=== PATIENT | female | born 1955 | race African-American/Black ===

== ENCOUNTER 2022-11-25 16:30 | Inpatient (IN) | payer OTHER ==
[2022-11-25 17:35] LABS: Hematocrit 34.7 % (36.0-45.0); Lymphocytes % 26.8 % (15.3-44.8); MCV 85.9 fL (80-100); MPV 8.2 fL (7.6-11.3); RBC Red Blood Cell Count 4.04 M/uL (3.86-4.86)
[2022-11-25 17:40] LABS: Protime INR 1.01
[2022-11-25 17:46] LABS: Urine Bacteria None Seen /HPF (<20); Urine Bilirubin NEGATIVE (Negative); Urine Blood Negative (Negative); Urine Clarity Clear (Clear); Urine Color Light-Yellow (Yellow); Urine Glucose NEGATIVE (Negative); Urine Mucus Slight /HPF (None Seen); Urine Protein NEGATIVE (Negative); Urine RBC <5 /HPF (None Seen); Urine Urobilinogen Normal (Normal)
[2022-11-25 17:51] LABS: Albumin 3.8 g/dL (3.4-5.0); Bilirubin Total 0.6 mg/dL (0.2-1.0); Potassium 3.2 mEq/L (3.5-5.1); Protein, Total 8.6 g/dL (6.4-8.2)
--- NOTE | 2022-11-25 17:55 | RAD REPORT ---
EXAM DESCRIPTION: Teagan Single View11/25/2022 5:13 pm CLINICAL HISTORY: Hypertension/ facial swelling COMPARISON: 2015 FINDINGS: The lungs appear clear of acute infiltrate. The heart is normal size IMPRESSION: No acute abnormalities displayed
[2022-11-25] MEDS ORDERED: LORazepam 2 MG/ML VIAL ONE (20:10)
--- NOTE | 2022-11-25 20:56 | RAD REPORT ---
EXAM DESCRIPTION: CTFacial Bones W Con Mpr11/25/2022 8:49 pm CLINICAL HISTORY: Right facial pain and swelling COMPARISON: None. TECHNIQUE: Computed axial tomography of the face obtained with coronal and sagittal reconstruction. 50 cc Isovue-[address] scans are performed using dose optimization technique as appropriate and may include automated exposure control or mA/KV adjustment according to patient size. FINDINGS: 18 millimeter abscess is present within the subcutaneous tissues superficial to the right mandible. It is palpable. The parotid and submandibular glands appear unremarkable. Visualized airway unremarkable The parapharyngeal fat is clear. Fluid within the sinuses is not noted. IMPRESSION: 18 millimeter right cheek abscess .
--- NOTE | 2022-11-25 22:23 | EDPHYS ---
Physician Documentation [facility] Name: Glenda Smith Age: 67 yrs Sex: Female : 1955 Arrival Date: 11/25/2022 Time: 16:30 Bed 13 Private MD: ED Physician Cresencio Rosario HPI: 11/25 17:02 This 67 yrs old Black Female presents to ER via Ambulatory with complaints of Abscess. cp 17:02 the patient presents with a swollen area of the right facial cheek. Description: cp fluctuant, swollen, warm. Onset: The symptoms/episode began/occurred 4 day(s) ago. Associated signs and symptoms: Pertinent negatives: discharge, drainage, fever. 17:02 Severity of symptoms: in the emergency department the symptoms are actually worse, cp moderately. 17:02 Patient reports she was seen at Urgent Care this past weekend and prescribed cp Doxycycline but swelling has continued to get worse. Historical: - Allergies: 16:56 No Known Allergies; ss - Home Meds: 23:38 glipizide 5 mg Oral tab 1 tab once daily [Active]; metformin 1,000 mg Oral tab 1 tab 2 rv times per day [Active]; - PMHx: 16:56 Diabetes - NIDDM; Hypertension; Hypothyroidism; ss - Immunization history:: Client reports receiving the 2nd dose of the Covid vaccine. - Social history:: Smoking status: Patient denies any tobacco usage or history of. ROS: 17:05 Skin: Positive for swelling, of the right cheek. cp 17:05 Constitutional: Negative for body aches, chills, fever. cp 17:05 ENT: Negative for drainage from ear(s), ear pain, sore throat, difficulty swallowing, difficulty handling secretions. 17:05 Respiratory: Negative for cough, shortness of breath, wheezing. 17:05 Abdomen/GI: Negative for abdominal pain, nausea, vomiting, and diarrhea. 17:05 Neuro: Negative for altered mental status, dizziness, headache, weakness. 17:05 All other systems are negative. Exam: 17:10 Constitutional: The patient appears in no acute distress, alert, awake, cp non-diaphoretic, non-toxic, well developed, well nourished, obese, uncomfortable. 17:10 Head/face: Noted is swelling, that is moderate, of the right cheek, tenderness, that cp is moderate, of the right cheek. 17:10 Eyes: Periorbital structures: appear normal, Conjunctiva: normal, no exudate, no injection, Sclera: no appreciated abnormality, Lids and lashes: appear normal, bilaterally. 17:10 ENT: External ear(s): are unremarkable, Nose: is normal, Mouth: Lips: moist, Oral mucosa: pink and intact, moist, Posterior pharynx: is normal, airway is patent, no erythema, no exudate. 17:10 Neck: ROM/movement: is normal, is supple, without pain, no range of motions limitations. 17:10 Chest/axilla: Inspection: normal. 17:10 Cardiovascular: Rate: normal, Rhythm: regular. 17:10 Respiratory: the patient does not display signs of respiratory distress, Respirations: normal, no use of accessory muscles, no retractions, labored breathing, is not present, Breath sounds: are clear throughout, no decreased breath sounds, no stridor, no wheezing. 17:10 Abdomen/GI: Exam negative for discomfort, distension, guarding, Inspection: abdomen appears normal. 17:10 Neuro: Orientation: to person, place \T\ time. Mentation: is normal, Motor: moves all fours, strength is normal. Vital Signs: 16:51 BP 168 / 73; Pulse 97; Resp 18; Temp 99.5; Pulse Ox 100% ; Weight 120.66 kg; Height 5 ss ft. 3 in. ; Pain 8/10; 22:03 BP 129 / 59; Pulse 89; Resp 18; Pulse Ox 100% on R/A; rv 23:39 BP 123 / 63; Pulse 78; Resp 17; Temp 98; Pulse Ox 100% on R/A; rv 16:51 Body Mass Index 47.12 (120.66 kg, 160.02 cm) ss 16:51 Pain Scale: Adult ss [place] Coma Score: 23:40 Eye Response: spontaneous(4). Motor Response: obeys commands(6). Verbal Response: rv oriented(5). Total: 15. MDM: 16:58 Patient medically screened. cp 18:00 Differential diagnosis: abscess, allergic reaction, cellulitis, insect bite. cp 21:49 ED course: message left by washing tub operator for DR Gregory. cp 22:15 Data reviewed: vital signs, nurses notes, lab test result(s), EKG, radiologic studies, cp CT scan. 22:15 Consideration of Admission/Observation Patient was admitted/placed on observation. cp Management of patient was discussed with the following: Imaging Nurse: DR Gregory will consult after discussion. Care significantly affected by the following chronic conditions: Diabetes, Hypertension. Counseling: I had a detailed discussion with the patient and/or guardian regarding: the historical points, exam findings, and any diagnostic results supporting the discharge/admit diagnosis, lab results, radiology results, the need for further work-up and treatment in the hospital. 22:20 Management of patient was discussed with the following: Hospitalist: Jalyn Barillas NP cp will admit after discussion. 11/25 17:01 Order name: Blood Culture Adult (2) 11/25 17:01 Order name: CBC with Diff; Complete Time: 17:43 11/25 17:43 Interpretation: Normal except: WBC 11.10; HGB 11.1; HCT 34.7. 11/25 17:01 Order name: CMP; Complete Time: 18:01 11/25 18:01 Interpretation: Normal except: K 3.2; GFR 75; TP 8.6; GLOB 4.8; A/G 0.8. 11/25 17:01 Order name: Lactate w/ 2H reflex if indic.; Complete Time: 18:01 11/25 17:01 Order name: Protime (+inr); Complete Time: 17:43 11/25 17:01 Order name: Ptt, Activated; Complete Time: 17:43 11/25 17:01 Order name: Urinalysis W/Microscopic; Complete Time: 18:01 11/25 17:01 Order name: Chest Single View XRAY; Complete Time: 18:01 11/25 17:01 Order name: CT Facial Bones W/ Con \T\ Mpr; Complete Time: 21:05 11/25 17:01 Order name: EKG; Complete Time: 17:01 11/25 17:01 Order name: Accucheck; Complete Time: 18:07 11/25 17:01 Order name: Cardiac monitoring; Complete Time: 17:02 11/25 17:01 Order name: EKG - Nurse/Tech; Complete Time: 18:07 11/25 17:01 Order name: IV Saline Lock - Large Bore; Complete Time: 17:28 cp 11/25 17:01 Order name: Labs collected and sent; Complete Time: 17:28 cp 11/25 17:01 Order name: O2 Per Protocol; Complete Time: 17:02 cp 11/25 17:01 Order name: O2 Sat Monitoring; Complete Time: 17:02 cp 11/25 17:01 Order name: Vital Signs; Complete Time: 17:02 cp Administered Medications: 20:20 Drug: Ativan IVP 1 mg Route: IVP; Site: left antecubital; rv 22:24 Follow up: Response: No adverse reaction rv 22:24 Drug: Clindamycin IVPB 900 mg Route: IVPB; Infused Over: 30 mins; Site: left rv antecubital; 23:30 Follow up: Response: No adverse reaction; IV Status: Completed infusion rv 22:24 Drug: Decadron - Dexamethasone IVP 10 mg Route: IVP; Site: left antecubital; rv 23:30 Follow up: Response: No adverse reaction rv 23:38 Not Given (NOT APPROPRIATE AT THIS TIMEe): morphine IVP or IV 2 mg IVP once over 4 mins rv 23:38 Not Given (Patient Refused): morphine IVP or IV 2 mg IVP once over 4 mins rv Disposition Summary: 11/25/22 22:22 Hospitalization Ordered Hospitalization Status: Inpatient Admission cp Location: Telemetry/[facility] (Inpatient) cp Condition: Stable cp Problem: new cp Symptoms: have improved cp Bed/Room Type: Standard cp Provider: Jay Whitehead(11/25/22 22:24) sb4 Room Assignment: [facility](11/25/22 23:09) Diagnosis - Cutaneous abscess of face cp - Failed Outpatient Treatment cp Forms: - Medication Reconciliation Form cp - SBAR form cp Addendum: 11/28/2022 10:04 Co-signature as Attending Physician, Cresencio Rosario MD I reviewed the patient's care r n provided by the Advanced Practice Provider and agree with the diagnosis and treatment plan. Signatures: Dispatcher [employer] Cresencio Michelle MD MD rn Blanchard, Shelby, RN RN ss Page, Corey, PA PA cp Garcia, Cindy, RN RN cg Vicente, Ronaldo, RN RN rv Cassie Barillas PA-C PA-C sb4 Corrections: (The following items were deleted from the chart) 11/25 22:22 Cassie Barillas cp sb4 22: cp
--- NOTE | 2022-11-25 22:23 | ER ---
Nurse's Notes [facility] Name: Glenda Smith Age: 67 yrs Sex: Female : 1955 Arrival Date: 11/25/2022 Time: 16:30 Bed 13 Private MD: Diagnosis: Cutaneous abscess of face;Failed Outpatient Treatment Presentation: 11/25 16:51 Chief complaint: Patient states: Abscess to right side of face, noticed it about 3 days ss ago. States it drained some, but has gotten bigger and more painful. Coronavirus screen: Vaccine status: Patient reports receiving the 2nd dose of the covid vaccine. Ebola Screen: Patient denies travel to an Ebola-affected area in the 21 days before illness onset. Initial Sepsis Screen: Does the patient meet any 2 criteria? No. Patient's initial sepsis screen is negative. Does the patient have a suspected source of infection? Yes: Skin breakdown/wound. Risk Assessment: Do you want to hurt yourself or someone else? Patient reports no desire to harm self or others. Onset of symptoms was November 22, 2022. 16:51 Method Of Arrival: Ambulatory ss 16:51 Acuity: PEPE 3 ss Historical: - Allergies: 16:56 No Known Allergies; ss - Home Meds: 23:38 glipizide 5 mg Oral tab 1 tab once daily [Active]; metformin 1,000 mg Oral tab 1 tab 2 rv times per day [Active]; - PMHx: 16:56 Diabetes - NIDDM; Hypertension; Hypothyroidism; ss - Immunization history:: Client reports receiving the 2nd dose of the Covid vaccine. - Social history:: Smoking status: Patient denies any tobacco usage or history of. Screenin:40 [facility] ED Fall Risk Assessment (Adult) History of falling in the last 3 months, ko1 including since admission No falls in past 3 months (0 pts) Confusion or Disorientation No (0 pts) Intoxicated or Sedated No (0 pts) Impaired Gait No (0 pts) Mobility Assist Device Used No (0 pt) Altered Elimination No (0 pt) Score/Fall Risk Level 0 - 2 = Low Risk Oriented to surroundings, Maintained a safe environment, Educated pt \T\ family on fall prevention, incl call for assistance when getting out of bed, Assessed \T\ reinforced patient's understanding of fall precautions, Provided non-skid footwear, Hourly rounding (assess needs \T\ fall precautionary measures) done, Used ambulatory aids as needed (educated on \T\ assisted with), Used gait belt as appropriate. Abuse screen: Denies threats or abuse. Denies injuries from another. Nutritional screening: No deficits noted. Tuberculosis screening: No symptoms or risk factors identified. Assessment: 16:40 General: Appears in no apparent distress. comfortable, Behavior is calm, cooperative, ko1 appropriate for age. Pain: Complains of pain in right cheek. Neuro: No deficits noted. Cardiovascular: No deficits noted. Respiratory: No deficits noted. GI: No deficits noted. : No deficits noted. EENT: No deficits noted. Derm: No deficits noted. Musculoskeletal: No deficits noted. Vital Signs: 16:51 BP 168 / 73; Pulse 97; Resp 18; Temp 99.5; Pulse Ox 100% ; Weight 120.66 kg; Height 5 ss ft. 3 in. ; Pain 8/10; 22:03 BP 129 / 59; Pulse 89; Resp 18; Pulse Ox 100% on R/A; rv 23:39 BP 123 / 63; Pulse 78; Resp 17; Temp 98; Pulse Ox 100% on R/A; rv 16:51 Body Mass Index 47.12 (120.66 kg, 160.02 cm) ss 16:51 Pain Scale: Adult ss [place] Coma Score: 23:40 Eye Response: spontaneous(4). Motor Response: obeys commands(6). Verbal Response: rv oriented(5). Total: 15. ED Course: 16:34 Patient arrived in ED. mr 16:36 Douglas Howell PA is PHCP. cp 16:36 Cresencio Rosario MD is Attending Physician. cp 16:40 Patient has correct armband on for positive identification. Bed in low position. Call ko1 light in reach. Side rails up X2. Pulse ox on. NIBP on. Door closed. Noise minimized. Warm blanket given. 16:56 Triage completed. ss 16:57 Arm band placed on right wrist. ss 17:02 Anabella Felder, ELAINE is Primary Nurse. ko1 17:10 Radiology exam delayed due to lab results not completed at this time. (BUN/Creatinine) bq IV insertion attempt and/or patient not having appropriate IV at this time. 17:15 Chest Single View XRAY In Process Unspecified. EDMS 17:20 Inserted saline lock: 22 gauge in right antecubital area, using aseptic technique. ko1 Blood collected. 17:28 Blood Culture Adult (2) Sent. ko1 17:28 CBC with Diff Sent. ko1 17:28 CMP Sent. ko1 17:28 Lactate w/ 2H reflex if indic. Sent. ko1 17:29 Protime (+inr) Sent. ko1 17:29 Ptt, Activated Sent. ko1 17:37 Urinalysis W/Microscopic Sent. ko1 18:42 Note: CT exam delayed due to patient requesting Ativan in order to complete the exam.. [id number] 20:51 CT Facial Bones W/ Con \T\ Mpr In Process Unspecified. EDMS 22:21 Cassie Barillas PA-C is Hospitalizing Provider. cp 22:24 Jay Whitehead MD is Hospitalizing Provider. sb4 23:30 No provider procedures requiring assistance completed. rv 23:38 Patient admitted, IV remains in place. rv Administered Medications: 20:20 Drug: Ativan IVP 1 mg Route: IVP; Site: left antecubital; rv 22:24 Follow up: Response: No adverse reaction rv 22:24 Drug: Clindamycin IVPB 900 mg Route: IVPB; Infused Over: 30 mins; Site: left rv antecubital; 23:30 Follow up: Response: No adverse reaction; IV Status: Completed infusion rv 22:24 Drug: Decadron - Dexamethasone IVP 10 mg Route: IVP; Site: left antecubital; rv 23:30 Follow up: Response: No adverse reaction rv 23:38 Not Given (NOT APPROPRIATE AT THIS TIMEe): morphine IVP or IV 2 mg IVP once over 4 mins rv 23:38 Not Given (Patient Refused): morphine IVP or IV 2 mg IVP once over 4 mins rv Medication: 23:38 VIS not applicable for this client. rv Outcome: 22:22 Decision to Hospitalize by Provider. cp 23:36 Admitted to Tele accompanied by tech, room 413, with chart, Report called to JANE HENRY rv 23:36 Condition: good 23:36 Instructed on the need for admit. 23:44 Patient left the ED. rv Signatures: Dispatcher [employer] [facility] Tory Estrada Betty bq Blanchard, Shelby, RN RN ss Douglas Howell PA PA cp Vicente, Ronaldo, RN RN rv Anabella Felder, RN RN Cassie Melendrez, Sandee Pina PA-C0
[2022-11-25] MEDS ORDERED: dexAMETHasone 4 MG/ML VIAL ONE (22:25)
[2022-11-25] MEDS ORDERED: CLINDAMYCIN 900MG/D5W 900 MG/50 ML IVPB IV ONE (22:26)
--- NOTE | 2022-11-25 22:52 | P.HP ---
Certification for Inpatient Patient admitted to: Inpatient With expected LOS: <2 Midnights Patient will require the following post-hospital care: None Practitioner: I am a practitioner with admitting privileges, knowledge of patient current condition, hospital course, and medical plan of care. Services: Services provided to patient in accordance with Admission requirements found in Title 42 Section 412.3 of the Code of Federal Regulations Patient History Date of Service: 11/26/22 Primary Care Provider: Hansel Reason for admission: Facial Abscess History of Present Illness: Ms. Smith is a 67-year-old female with past medical history of hypertension, hypothyroidism, and type 2 diabetes who presented to the emergency department with complaints of right cheek abscess, pain, and swelling. She states that she initially had a pimple and it gradually got worse. She was seen at urgent care 3 days ago and started on doxycycline. She states the abscess has only worsened, states it has drained some. Today CT showed "18 millimeter right cheek abscess" WBC slightly elevated at 11.5, lactate WNL, vitals stable. ENT was contacted and has agreed to consult, does not think it surgical. She was started on clindamycin in the emergency department and will be admitted for further management. Allergies No Known Allergies Allergy (Unverified 08/14/13 17:13) Home medications list reviewed: Yes Home Medications: Levothyroxine [Synthroid*] 2 tab PO DAILY 08/14/13 Liothyronine [Cytomel*] 0.5 tab PO TID 08/14/13 Metformin HCl [Glucophage*] 1,000 mg PO BID 08/14/13 glipiZIDE [Glucotrol*] 15 mg PO BID 08/14/13 lisinopriL [Prinivil*] 20 mg PO DAILY 08/14/13 Pioglitazone [Actos*] 15 mg PO DAILY 08/16/13 levoFLOXacin [Levaquin*] 750 mg PO DAILY #14 tab 08/17/13 - Past Medical/Surgical History Diabetic: Yes -: Hypothyroidism -: HTN -: Type 2 Diabetes -: -: Cholecystectomy -: Thyroidectomy Psychosocial/ Personal History: Patient is . - Family History Family History: Reviewed- Non-Contributory - Social History Smoking Status: Never smoker Alcohol use: No CD- Drugs: No Caffeine use: No Place of Residence: Home Review of Systems Integumentary: As per HPI Physical Examination - Vital Signs Temperature: 99.5 F Blood Pressure: 129/59 Pulse: 89 Respirations: 18 Pulse Ox (%): 100 - Physical Exam General: Alert, In no apparent distress HEENT: Atraumatic, EOMI, Sclerae nonicteric Neck: Supple, 2+ carotid pulse no bruit Respiratory: Clear to auscultation bilaterally, Normal air movement Cardiovascular: Regular rate/rhythm, Normal S1 S2 Gastrointestinal: Normal bowel sounds, No tenderness Musculoskeletal: No tenderness Integumentary: Tenderness/swelling, Erythema, Warmth Neurological: Normal speech, Normal affect - Studies Laboratory Data (last 24 hrs) 11/25/22 17:15: PT 11.1, INR 1.01, APTT 35.3 11/25/22 17:15: Sodium 137, Potassium 3.2 L, BUN 12, Creatinine 0.86, Glucose 92, Total Bilirubin 0.6, AST 16, ALT 20, Alkaline Phosphatase 114 11/25/22 17:15: WBC 11.10 H, Hgb 11.1 L, Hct 34.7 L, Plt Count 323 Assessment and Plan - Problems (Diagnosis) (1) Facial abscess Current Visit: Yes Status: Acute (2) Hypothyroidism Current Visit: Yes Status: Chronic Qualifiers: Hypothyroidism type: postoperative Qualified Code(s): E89.0 - Postprocedural hypothyroidism (3) Diabetes mellitus Current Visit: Yes Status: Chronic (4) Hypertension Current Visit: Yes Status: Chronic Qualifiers: Hypertension type: primary hypertension Qualified Code(s): I10 - Essential (primary) hypertension - Plan Patient is admitted for further management of facial abscess, failed outpatient treatment. Continue IV clindamycin. Blood cultures obtained. Does NOT meet sepsis criteria. ENT consulted, Dr. Gregory, aware of patient. NPO in case for surgical surgical intervention, although unlikely. Glucose monitoring and control with sliding scale. Monitor and replete electrolytes per protocol. Reconcile and continue home medications. VTE prophylaxis. Full code. Discharge Plan: Home Plan to discharge in: 48 Hours - Advance Directives Does patient have a Living Will: No Does patient have a Durable POA for Healthcare: No - Code Status/Comfort Care Code Status Assessed: Yes Code Status: Full Code Physician Review: Patient Assessed, Agree with Above Assessment and Plan Critical Care: No Time Spent Managing Pts Care (In Minutes): 50
[2022-11-25] MEDS ORDERED: D50W 25 GM/50 ML SYRINGE IV PRN (23:44)
[2022-11-25] MEDS ORDERED: ONDANSETRON 4 MG/2 ML VIAL IV PRN (23:44)
[2022-11-25] MEDS ORDERED: GLUCAGON 1 MG/VIAL IM PRN (23:44)
[2022-11-25] MEDS ORDERED: MORPHINE 4 MG/ML SYR IV PRN (23:44)
[2022-11-25] MEDS ORDERED: D10W 125 ML IV PRN (23:56)
[2022-11-26] MEDS: NA CHLORIDE 0.9% 1,000 ML IV SCH ×2 (00:14→13:03)
[2022-11-26 00:40] VITALS: O2SAT 96
[2022-11-26] MEDS ORDERED: CLINDAMYCIN INJ 900 MG in NA CHLORIDE 0.9% 50 ML IV SCH ×2 (01:00→06:00)
[2022-11-26] MEDS ORDERED: CLINDAMYCIN 900MG/D5W 900 MG/50 ML IVPB IV ONE (05:00)
[2022-11-26 05:38] LABS: MPV 8.4 fL (7.6-11.3)
[2022-11-26 05:39] LABS: Absolute Lymphocytes (CBC) 0.8 K/uL (0.7-4.9)
[2022-11-26 06:01] LABS: Magnesium 2.2 mg/dL (1.6-2.4); Phosphorus 2.9 mg/dL (2.5-4.9); Potassium 3.4 mEq/L (3.5-5.1)
[2022-11-26] MEDS: INSULIN -REGULAR HUMAN 50 UNIT/0.5 ML ML SQ SCH ×5 (06:10→21:00)
[2022-11-26] MEDS ORDERED: PNEUMOCOCCAL VACCINE 0.5 ML IMVAC ONE (08:00)
[2022-11-26] MEDS ORDERED: POTASSIUM CL SA 10 MEQ TAB PO ONE (09:00)
[2022-11-26] MEDS: ACETAMINOPHEN 500 MG TAB PO PRN ×2 (10:35→22:10)
[2022-11-26] MEDS: CLINDAMYCIN 900MG/D5W 900 MG/50 ML IVPB IV SCH ×2 (10:40→18:10)
[2022-11-26] MEDS ORDERED: GLUCAGON 1 MG/VIAL IM PRN (12:32)
[2022-11-26] MEDS ORDERED: D10W 250 ML BAG IV PRN (12:39)
[2022-11-26] MEDS ORDERED: HOME MED 1 EA UNK (Clopidogrel Bisulfate [Clopidogrel] 300 MG Tablet) PO SCH (13:00)
[2022-11-26] MEDS: CLOPIDOGREL 75 MG TABLET PO SCH (13:03)
--- NOTE | 2022-11-26 13:08 | P.PN ---
Subjective Date of Service: 11/26/22 Primary Care Provider: Hansel Chief Complaint: Facial Abscess Subjective: Doing well, Other (Patient seen at bedside. Reports improvement in facial pain. Denies any shortness of breath, chest pain or any other signs and symptoms. Continue supportive care.) Review of Systems General: Unremarkable Eyes: Unremarkable ENT: Unremarkable Respiratory: Unremarkable Cardiovascular: Unremarkable Gastrointestinal: Unremarkable Genitourinary: Unremarkable Musculoskeletal: Unremarkable Integumentary: Other (facial abscess) Neurological: Unremarkable Lymphatics: Unremarkable Physical Examination - Vital Signs Temperature: 98.7 F Blood Pressure: 135/63 Pulse: 85 Respirations: 18 Pulse Ox (%): 98 - Physical Exam General: Alert, In no apparent distress, Oriented x3, Cooperative HEENT: Atraumatic, PERRLA, EOMI Neck: Supple, JVD not distended Respiratory: Clear to auscultation bilaterally, Normal air movement Cardiovascular: No edema, Regular rate/rhythm, Normal S1 S2 Capillary refill: <2 Seconds Gastrointestinal: Normal bowel sounds, Non-distended, No tenderness Musculoskeletal: No clubbing, No swelling, No tenderness Integumentary: No rashes, Tenderness/swelling, Erythema, Other (Right cheek abscess.) Neurological: Normal speech, Normal tone, Normal affect Lymphatics: No axilla or inguinal lymphadenopathy - Studies Laboratory Data (last 24 hrs) 11/25/22 17:15: PT 11.1, INR 1.01, APTT 35.3 11/25/22 17:15: Sodium 137, Potassium 3.2 L, BUN 12, Creatinine 0.86, Glucose 92, Total Bilirubin 0.6, AST 16, ALT 20, Alkaline Phosphatase 114 11/25/22 17:15: WBC 11.10 H, Hgb 11.1 L, Hct 34.7 L, Plt Count 323 Assessment And Plan - Plan --Facial abscess. Failed outpatient therapy. ENT on board. Recommended to continue antibiotics. Blood cultures pending. --Acute pain. We will manage pain with current pain medication regimen. --DM2 with hyperglycemia. BS monitor with sliding scale insulin, pre-meal insulin and Lantus. --Hypothyroidism. Continue home medication. --Anemia of chronic disease. H&H stable. We will continue to monitor hemoglobin and transfuse if less than 7.0. --Hypokalemia. Replete as needed. --Hyperlipidemia. Continue statin. --Hypertension. Stable. Continue home medication. --DVT prophylaxis with Lovenox subQ. Discharge Plan: Home Plan to discharge in: Greater than 2 days - Code Status/Comfort Care Code Status Assessed: No Physician Review: Patient Assessed, Agree with Above Assessment and Plan Critical Care: No
--- NOTE | 2022-11-26 15:19 | CON ---
Date of Consultation: 11/26/2022 Chief Complaint: Right lower facial swelling. History Of Present Illness: Ms. Smith is a 67-year-old female who presented to the emergency room [facility] with complaints of right cheek pain and swelling. She stated that she initially had a pimple in the right lower cheek and it gradually got worse when she picked at it. She stated it started appro ximately 1 week ago, and then she presented to Urgent Care approximately 3 days ago and was started o n doxycycline. She stated that the swelling and pain worsen and then a fistula formed where she had some mild drainage at the epidermis at the center of the swelling. She was evaluated in the emergenc y room and CT scan of facial bones demonstrated a 1.8 cm right lower cheek infected cyst or abscess. White blood cell count was slightly elevated at 11.5, although lactate was within normal limits and vitals were stable. Thus, she was admitted for initial clindamycin IV antibiotics and then I was con sulted for further evaluation and recommendations. Upon arrival to bedside, the patient is in no acu te distress. She does note that the swelling has improved and she has some dry drainage noted over t he fistula site. She has no other ENT complaints today. Past Medical History: Pertinent for hypertension, hypothyroidism, and type 2 diabetes, which is fair ly controlled. Past Surgical History: section, cholecystectomy, thyroidectomy. Psychosocial History: Patient is . Family History: Noncontributory. Social History: Denies tobacco, alcohol, or illicit drugs or caffeine use. Home Medications: Include levothyroxine, liothyronine, metformin, glipizide, lisinopril, pioglitazon e, levofloxacin. Allergies: NO KNOWN DRUG ALLERGIES. Review of Systems: Constitutional: Negative for fever or lethargy or dizziness. Eyes: Negative for redness, drainage or pain or visual disturbance. Ears: Negative for otalgia, otorrhea, hearing loss or tinnitus. Nose: Negative for rhinorrhea, nasal congestion, postnasal drip, or pain. Throat: Negative for pain or dysphagia. Face: Positive for right lower cheek swelling, redness, dry drainage. Neck: Negative for lymphadenopathy or neck mass. Physical Examination: Vital Signs: Stable. General: The patient is awake, alert, oriented to person, place, time. Head: Atraumatic, normocephalic. Eyes: PERRLA/EOMI. Ears: Deferred. Nose: Moist intranasal mucosa. Midline septum. Throat: Moist mucosa. Midline uvula. No exudate. Neck: Supple. Trachea midline. Face: Small nodular swelling noted right inferior medial cheek with visual fistula and some dry drai nage noted around the fistula. I was able to express some drainage. It appears patient has mostly c ellulitic infection, although I do believe there is an abscess palpable and appears it is already spo ntaneously drained, but she has some residual swelling in that area. Laboratory Data: CT scan of the facial bones was reviewed myself and indeed there is a rather large abscess noted in that area, but it has improved on today's exam. Laboratory data demonstrates white blood cell count of 11.10, hemoglobin 11.1, hematocrit 34.7, and p latelets are 323. Diagnoses: Right facial abscess, gradual improvement with doxycycline and now clindamycin IV. Recommendations: We will continue antibiotics throughout the day and if not significantly improved b y tomorrow, we will perform I and D with packing and irrigation. Thank you for this most interesting consultation. EARL/LIZETTE Voice ID: [id number] Report ID: [id number]
[2022-11-26] MEDS: INSULIN LISPRO 100 UNIT/1 ML SQ SCH ×2 (15:32→17:44)
[2022-11-26 15:46] LABS: Potassium 3.9 mEq/L (3.5-5.1)
[2022-11-26] MEDS ORDERED: ENOXAPARIN 40 MG/0.4 ML SQ SCH (17:00)
[2022-11-26] MEDS: carvediloL 6.25 MG TAB PO SCH (20:32)
[2022-11-26] MEDS: MUPIROCIN 2% OINT 22GM TUBE TOP SCH (20:33)
--- NOTE | 2022-11-26 20:39 | EKG ---
Test Date: 2022-11-25 Test Time: 17:35:13 Commercial Crabber: THUY MEASUREMENT RESULTS: Intervals: Rate: 94 MI: 146 QRSD: 152 QT: 400 QTc: 500 Alba: P: 56 MI: 146 QRS: -51 T: -10 INTERPRETIVE STATEMENTS: Normal sinus rhythm Right bundle branch block Left anterior fascicular block Bifascicular block Abnormal ECG Compared to ECG 01/06/2016 02:13:30 Left anterior fascicular block now present Bifascicular block now present Electronically Signed On 11-26-22 20:33:08 CDT by Thomas Alarcon
[2022-11-26] MEDS ORDERED: ATORVASTATIN 20 MG TAB PO SCH (21:00)
[2022-11-26] MEDS ORDERED: INSULIN GLARGINE 100 UNIT/ML SQ SCH (21:00)
[2022-11-27 00:44] VITALS: BMI 22.1
[2022-11-27] MEDS: CLINDAMYCIN 900MG/D5W 900 MG/50 ML IVPB IV SCH ×2 (01:01→08:16)
[2022-11-27] MEDS: NA CHLORIDE 0.9% 1,000 ML IV SCH (05:03)
[2022-11-27] MEDS ORDERED: LEVOTHYROXINE SOD 0.112 MG TAB PO SCH (06:30)
--- NOTE | 2022-11-27 07:17 | P.PN ---
Date of Service: 11/27/22 Subjective: doing okay today facial swelling and pain improving no new / worsening problems afebrile ROS: 10 point ROS as noted above, otherwise negative Physical Exam: GEN: Alert, oriented, NAD HEENT: Normal conjunctiva, sclera anicteric CV: Regular rate and rhythm, no edema Pulm: Nonlabored respirations on room air ABD: Soft, nontender, nondistended MSK: No joint tenderness Integumentary: R cheek facial abscess, Tenderness/swelling, Erythema, Warmth Neuro: Normal speech, normal affect vitals reviewed Problem List: R cheek Facial Abscess - 18 mm DM2 with hyperglycemia Anemia of chronic disease Hypothyroidism Hypokalemia Hyperlipidemia Hypertension R cheek Facial Abscess - 18 mm failed outpatient treatment CT facial bones (11/25): 18 mm right cheek abscess Blood cultures(11/25): NGTD ENT consulted - Dr. Gregory Continue IV clindamycin NPO possible I&D if symptoms worsen PRN pain meds DM2 with hyperglycemia sliding scale insulin, pre-meal insulin and Lantus Anemia of chronic disease H&H stable, transfuse if hgb < 7 Hypothyroidism Hypokalemia Hyperlipidemia Hypertension continue home medications including - coreg, plavix, synthroid, lisinopril, HCTZ VTE: Lovenox Code: Full Dispo: Home 2+ days
[2022-11-27] MEDS: INSULIN -REGULAR HUMAN 50 UNIT/0.5 ML ML SQ SCH ×2 (07:30→11:30)
[2022-11-27] MEDS: INSULIN LISPRO 100 UNIT/1 ML SQ SCH ×2 (08:00→11:37)
[2022-11-27 08:04] VITALS: BP 135/62; TEMP 97
[2022-11-27] MEDS: MUPIROCIN 2% OINT 22GM TUBE TOP SCH (08:17)
[2022-11-27 08:22] LABS: Absolute Lymphocytes (CBC) 4.2 K/uL (0.7-4.9); Hematocrit 33.8 % (36.0-45.0); Lymphocytes % 39.1 % (15.3-44.8); MPV 8.8 fL (7.6-11.3); RBC Red Blood Cell Count 3.93 M/uL (3.86-4.86)
[2022-11-27] MEDS ORDERED: LIDOCAINE 1% W/EPI 1:100,000 50 ML MDV IV ONE (08:30)
[2022-11-27 08:37] LABS: Potassium 3.5 mEq/L (3.5-5.1)
[2022-11-27] MEDS: carvediloL 6.25 MG TAB PO SCH ×2 (09:00→12:56)
[2022-11-27] MEDS: lisinopriL 20 MG TAB PO SCH ×3 (09:00→12:58)
[2022-11-27] MEDS ORDERED: HOME MED 1 EA UNK (Lisinopril/Hydrochlorothiazide [Lisinopril-Hctz 20-25 Mg Tab] Tablet) PO SCH (09:00)
[2022-11-27] MEDS: CLOPIDOGREL 75 MG TABLET PO SCH ×2 (09:00→12:58)
[2022-11-27] MEDS: hydroCHLOROthiazide 25 MG TAB PO SCH ×2 (09:00→12:57)
[2022-11-27 09:11] LABS: Platelet Estimate ADEQ
[2022-11-27 09:14] LABS: Blood Morphology Comment NOT SEEN (NOT SEEN)
[2022-11-27 09:54] LABS: White Blood Cell Scan OK (OK)
--- NOTE | 2022-11-27 12:21 | P.PN ---
Date of Service: 11/27/22 ENT Progress Note Patient seen and examined. Not much improvement in right cheek swelling/fluid collection since starting IV clindamycin IV. She has now been on antibiotics oral and IV for at least 72 hours. Exam: Right inferomedial cheek fluid collection, not improved since yesterday and since starting IV clindamycin. Procedure: after obtaining written consent, patient was placed in seated position and the right malar skin overlying the abscess was cleansed with Betadine. I then made an incision directly over the abscess and approximately 3.0 ml of malodorous drainage was removed from the cavity. I irrigated with 10 ml of saline and then packed the wound defect with 1/4 inch of Iodoform. I then placed 2 x 2 gauze over the surgical site. She tolerated well. Impression: 1. Acute right cheek abscess s/p I&D, successful. Plan: 1. September d/c home on oral Clindamycin 300 mg TID. 2. Prn tylenol/ibuprofen for pain. 3. Change out packing daily. 4. Followup in 5-7 days outpatient clinic.
--- NOTE | 2022-11-27 12:44 | P.DS ---
Admission Date: 11/25/22 Discharge Date: 11/27/22 Primary Care Provider: Hansel Reason for Admission: Facial Abscess Consultations: ENT - Dr. Gregory Brief History of Present Illness: 67yo F, PMH: hypertension, hypothyroidism, and type 2 diabetes Patient presented to the emergency department with complaints of right cheek abscess, pain, and swelling. She states that she initially had a pimple and it gradually got worse. She was seen at urgent care 3 days ago and started on doxycycline. She states the abscess has only worsened, states it has drained some. Today CT showed "18 millimeter right cheek abscess" WBC slightly elevated at 11.5, lactate WNL, vitals stable. ENT was contacted and has agreed to consult, does not think it surgical. She was started on clindamycin in the emergency department. Hospital Course: Problem List: R cheek Facial Abscess - 18 mm DM2 with hyperglycemia Anemia of chronic disease Hypothyroidism Hypokalemia Hyperlipidemia Hypertension Physical Exam: GEN: Alert, oriented, NAD HEENT: Normal conjunctiva, sclera anicteric CV: Regular rate and rhythm, no edema Pulm: Nonlabored respirations on room air ABD: Soft, nontender, nondistended MSK: No joint tenderness Integumentary: R cheek facial abscess, Tenderness/swelling, Erythema, Warmth Neuro: Normal speech, normal affect Vital Signs/Physical Exam: Temp Pulse Resp BP Pulse Ox 97.0 F 66 16 135/62 98 11/27/22 08:00 11/27/22 08:00 11/27/22 08:00 11/27/22 08:00 11/27/22 08:00 Laboratory Data at Discharge: WBC 10.70 thou/uL (4.3-10.9) 11/27/22 07:54 Hgb 10.7 g/dL (12.0-15.0) L 11/27/22 07:54 Hct 33.8 % (36.0-45.0) L 11/27/22 07:54 Plt Count 267 thou/uL (152-406) 11/27/22 07:54 PT 11.1 SECONDS (9.5-12.5) 11/25/22 17:15 INR 1.01 11/25/22 17:15 APTT 35.3 SECONDS (24.3-36.9) 11/25/22 17:15 Sodium 143 mEq/L (136-145) 11/27/22 07:54 Potassium 3.5 mEq/L (3.5-5.1) 11/27/22 07:54 BUN 14 mg/dL (7-18) 11/27/22 07:54 Creatinine 0.77 mg/dL (0.55-1.02) 11/27/22 07:54 Glucose 141 mg/dL (74-106) H 11/27/22 07:54 Phosphorus 2.9 mg/dL (2.5-4.9) 11/26/22 05:03 Magnesium 2.2 mg/dL (1.6-2.4) 11/26/22 05:03 Total Bilirubin 0.6 mg/dL (0.2-1.0) 11/25/22 17:15 AST 16 U/L (15-37) 11/25/22 17:15 ALT 20 U/L (13-56) 11/25/22 17:15 Alkaline Phosphatase 114 U/L (45-117) 11/25/22 17:15 Triglycerides 48 mg/dL (<150) 11/26/22 05:03 Cholesterol 167 mg/dL (<200) 11/26/22 05:03 HDL Cholesterol 63 mg/dL (40-60) H 11/26/22 05:03 Cholesterol/HDL Ratio 2.65 11/26/22 05:03 Home Medications: Levothyroxine [Synthroid*] 2 tab PO DAILY 08/14/13 Metformin HCl [Glucophage*] 1,000 mg PO BID 08/14/13 glipiZIDE [Glucotrol*] 5 mg PO BID 08/14/13 Atorvastatin Calcium [Lipitor] 20 mg PO BEDTIME 11/26/22 Clopidogrel Bisulfate [Plavix] 75 mg PO DAILY 11/26/22 Lisinopril/Hydrochlorothiazide [Lisinopril-Hctz 20-25 mg Tab] 20 tab PO DAILY 11/26/22 carvediloL [Carvedilol] 6.25 mg PO BID 11/26/22 clindamycin HCL [Clindamycin HCl] 300 mg PO TID #30 cap 11/27/22 New Medications: clindamycin HCL [Clindamycin HCl] 300 mg PO TID #30 cap Physician Discharge Instructions: Patient presented with a right cheek facial abscess. CT facial bones (11/25): 18 mm right cheek abscess. Dr. Gregory (ENT) was consulted and performed an I&D. Patient was treated with IV clindamycin. Patient is to finish course of PO clindamycin 300mg 3 times a day. On day of discharge patient was feeling much better, swelling and pain significantly improved, and remained afebrile with no leukocytosis. Daily packing changes New Prescriptions: Clindamycin 300 mg TID Prn tylenol/ibuprofen for pain continue other home medications as previously prescribed Follow up: PCP 3-5 days ENT - Dr. Gregory within 5-7 days Time spent managing pt's care (in minutes): 45
== END 2022-11-27 15:12 | disposition home or self-care (01) | DRG 603 ==
LOC: ER 16:30 → ERHOLD 22:44 → 4TH 23:39
PROVIDERS: ADMIT Hospitalist; ATTEND Hospitalist
PROC: 0H91XZZ Drainage of Face Skin, External Approach (ICD-10-PCS; principal; 2022-11-26)
DX: L02.01 Cutaneous abscess of face (principal); I10 Essential (primary) hypertension; E89.0 Postprocedural hypothyroidism; E87.6 Hypokalemia; E78.5 Hyperlipidemia, unspecified; E11.65 Type 2 diabetes mellitus with hyperglycemia; D63.8 Anemia in other chronic diseases classified elsewhere; Z23 Encounter for immunization; Z79.84 Long term (current) use of oral hypoglycemic drugs; Z90.49 Acquired absence of other specified parts of digestive tract; Z79.890 Hormone replacement therapy; Z79.899 Other long term (current) drug therapy
CPT/HCPCS: 36415; 70487; 71045; 76377; 80048; 80053; 80061; 81001; 82947; 83605; 83735; 84100; 85025; 85610; 85730; 87040; 90471; 90732; 93005; 96365; 96375; 99285; J1100; J1650; J1815; J7030; Q9967

== ENCOUNTER 2023-04-04 08:11 | Day surgery (SDC) | payer OTHER ==
[2023-04-02 11:55] LABS: Potassium 4.4 mEq/L (3.5-5.1)
--- NOTE | 2023-04-02 18:03 | EKG ---
Test Date: 2023-04-02 Test Time: 10:35:54 Drying Oven Tender: EVER MEASUREMENT RESULTS: Intervals: Rate: 65 AR: 160 QRSD: 154 QT: 460 QTc: 478 [place]: P: 64 AR: 160 QRS: -1 T: -4 INTERPRETIVE STATEMENTS: Normal sinus rhythm Right bundle branch block Abnormal ECG Compared to ECG 11/25/2022 17:35:13 Left anterior fascicular block no longer present Bifascicular block no longer present Electronically Signed On 04-02-23 18:02:49 CDT by Tyrell Jones
[2023-04-04] MEDS ORDERED: NA CHLORIDE 0.9% 1,000 ML ONE (08:45)
[2023-04-04] MEDS ORDERED: CEFAZOLIN SODIUM 1 GM/VIAL ONE (08:45)
[2023-04-04] MEDS ORDERED: FENTANYL CITR 100 MCG/2 ML ONE (09:08)
[2023-04-04] MEDS ORDERED: KETOROLAC 30 MG/ML INJ ONE (09:08)
[2023-04-04] MEDS ORDERED: MIDAZOLAM HCL 2 MG/2 ML INJ ONE (09:08)
[2023-04-04] MEDS ORDERED: propofoL 200 MG/20 ML VIAL IV ONE (09:08)
[2023-04-04] MEDS ORDERED: LIDOCAINE 2% MPF 5 ML VIAL ONE (09:09)
[2023-04-04] MEDS ORDERED: ONDANSETRON 4 MG/2 ML VIAL ONE (09:09)
[2023-04-04] MEDS ORDERED: BACITRACIN OINTMENT 14 GM TUBE TOP ONE (09:45)
[2023-04-04] MEDS ORDERED: LIDOCAINE HCL/EPINEPHRINE 20 ML MDV ONE (09:45)
--- NOTE | 2023-04-04 10:34 | P.OP ---
Residential Real Estate Agent: NONE,NONE Preoperative diagnosis: Right sebaceous cyst, cheek Postoperative diagnosis: Same Primary procedure: Excision benign skin lesion, 1.5 cm Anesthesia: General via LMA Estimated blood loss: Less than 5 mL Specimen: Right cheek sebaceous cyst Findings: Scar from prior infection Operative Technique: After induction of general anesthesia, the head of bed was rotated 45 degrees for better exposure of the right cheek. The 1 x 1.5 cm sebaceous cyst had moderate areas of hyperpigmentation with a well-healed scar from prior incision and drainage which was performed during acute infection. The area was injected with 3 mL of 1% lidocaine with epinephrine. The skin was prepped and draped in a sterile fashion. A 1.5 cm fusiform incision was made over the central portion of the sebaceous cyst in a vertical fashion. The skin was sharply divided and tenotomy and iris scissors were used to dissect the cyst from the surrounding fatty tissues. The wall of the cyst was difficult to identify due to the degree of scarring but care was made to completely excise the cyst by staying in the fatty tissue planes. After removal, the surgical site was thoroughly irrigated with sterile saline. The surgical bed was inspected and pinpoint needle Bovie cautery was applied to areas of oozing. The incision was then closed in a layered fashion. 4-0 Vicryl deep sutures were used to reapproximate the incision. 5-0 Prolene interrupted skin sutures were then applied. Direct pressure was applied to the site for a few moments. There is no significant bleeding. Triple antibiotic ointment was applied to the incision and a small pressure dressing was placed. The procedure was concluded and the patient was returned to care of anesthesia for awakening and transportation to the recovery room which proceeded and the patient remained in stable condition. Complications: None Implants: None Fluids & blood products: Crystalloid, see anesthesia record Transferred to: Recovery Room Condition: Good
[2023-04-04 11:04] VITALS: O2SAT 97
[2023-04-04] MEDS ORDERED: MORPHINE 4 MG/ML SYR ONE (11:04)
[2023-04-04 11:48] VITALS: BP 129/59; TEMP 97.4
== END 2023-04-04 11:45 | disposition home or self-care (01) ==
LOC: OR 08:11
PROVIDERS: ATTEND Otolaryngology
PROC: 0JB10ZZ Excision of Face Subcutaneous Tissue and Fascia, Open Approach (ICD-10-PCS; principal; 2023-04-04 09:30)
DX: L72.0 Epidermal cyst (principal); Z79.02 Long term (current) use of antithrombotics/antiplatelets; I10 Essential (primary) hypertension; E11.9 Type 2 diabetes mellitus without complications; E78.5 Hyperlipidemia, unspecified; E03.9 Hypothyroidism, unspecified; K21.9 Gastro-esophageal reflux disease without esophagitis
CPT/HCPCS: 93005; 80048; 36415; 82947 ×2; 88304; 11442; J2704; J2001; J2250; J3010; J2405; J7030; J0690

== ENCOUNTER → 2023-07-05 | Emergency (ER) | payer OTHER ==
[~2023-07-05] MED LIST: IBUPROFEN 200 MG TAB PO ONE; IBUPROFEN 400 MG TAB ONE; MORPHINE 2 MG/ML SYR ONE
--- OUTSIDE RECORDS SUMMARY | 2023-07-05 19:47 | XMS REPORT | Continuity of Care Document ---
Author Name Unknown Address [address] [place] [address] [facility] Address [address] [place] [address] Care Team Providers Care Plastic Fixture Builder Name Role Phone Santiago Hamm MD Primary Care Physician [phone] MEL CAMPOS Attending Clinician Unavailable Mel Woods Attending Clinician [phone] ANTON VELIZ Attending Clinician Unavailable Anton Joya Attending Clinician [phone] Unknown, Attending Attending Clinician Unavailab le Payers Payer Name Policy Type Policy Number Effective Date Expirati on Date Source [employer] MA[employer]ED MEDICARE PPO-KAMRAN [id number] 2022 00:00:00 Allergies, Adverse Reactions, Alerts Allergy Name Allergy Type Status Severity Reaction(s) Onset Date Inactive Date Treating Clinician Comments Source LATEX DRUG INGREDI Active Rash 11-23 00:00: 00 [facility] Latex Propensi ty to adverse reaction s Active Rash 11-23 00:00: 00 [facility] NO KNOWN ALLERGIE S Drug Class Active [facility] Social History Social Habit Start Date Stop Date Quantity Comments Source Sex Assigned At 1955 00:00:00 1955 00:00:00 [facility] Smoking Status Start Date Stop Date Source Tobacco smoking consumption unknown [facility] Medications Ordered Medication Name Filled Medication Name Start Date Stop Date Current Medication? Ordering Clinician Indication Dosage Frequency Signature (SIG) Comments Components Source valACYclovi r (VALTREX) tablet 1,000 mg 12-05 04:00: 00 12-05 03:18 :00 No 1000mg 1,000 mg, Oral, ONCE NOW, 1 dose, On Fri12/04/22 at 2300, GUILLERMO [facility] doxycycline hyclate 100 mg capsule 12-04 00:00: 00 Yes [id number] 100mg Take 1 capsule by mouth in the morning and 1 capsule in the evening. [facility] valACYclovi r (VALTREX) 1 gram tablet 12-04 00:00: 00 12-12 04:59 :00 No [id number] 1g Take 1 tablet by mouth in the morning and 1 tablet at noon and 1 tablet in the evening. Do all this for 7 days. [facility] carvediloL 6.25 mg tablet 11-23 15:31: 34 Yes 6.25mg Take 1 tablet by mouth in the morning and 1 tablet in the evening. Take with meals. [facility] clopidogreL (PLAVIX) 75 mg tablet 11-23 15:31: 34 Yes 75mg Take 1 tablet by mouth in the morning. [facility] carvediloL 6.25 mg tablet 11-23 15:31: 34 Yes 6.25mg Take 1 tablet by mouth in the morning and 1 tablet in the evening. Take with meals. [facility] clopidogreL (PLAVIX) 75 mg tablet 11-23 15:31: 34 Yes 75mg Take 1 tablet by mouth in the morning. [facility] doxycycline hyclate 100 mg tablet 11-23 00:00: 00 12-04 04:59 :00 No [id number] 100mg Take 1 tablet by mouth in the morning and 1 tablet in the evening. Do all this for 10 days. [facility] lisinopril- hydrochloro thiazide 20-25 mg per tablet 2016-06 12:20: 26 Yes 1{tbl} Take 1 tablet by mouth daily. [facility] Levothyroxi ne 125 mcg capsule 2016-06 12:20: 26 Yes 125ug Take 125 mcg by mouth daily. [facility] omeprazole 40 mg capsule 2016-06 12:20: 26 Yes 40mg Take 40 mg by mouth daily. [facility] atorvastati n 20 mg tablet 2016-06 12:20: 26 Yes 20mg Take 20 mg by mouth at bedtime. [facility] prasugrel 10 mg tablet 2016-06 12:20: 26 Yes 10mg Take 10 mg by mouth daily. [facility] Levothyroxi ne 50 mcg capsule 2016-06 12:20: 26 Yes 2.5ug Take 2.5 mcg by mouth 3 (three) times daily. [facility] metFORMIN 1,000 mg tablet 2016-06 12:20: 26 Yes 1000mg Take 1,000 mg by mouth 2 (two) times daily with meals. [facility] glipiZIDE 5 mg tablet 2016-06 12:20: 26 Yes 5mg Take 5 mg by mouth 2 (two) times daily before breakfast and dinner. [facility] HYDROcodone -acetaminop hen (NORCO) 10-325 mg tablet 2016-06 12:20: 26 Yes 1{tbl} Take 1 tablet by mouth every 8 (eight) hours as needed for Pain (scale 4-6). [facility] metaxalone 800 mg tablet 2016-06 12:20: 26 Yes 800mg Take 800 mg by mouth 3 (three) times daily. [facility] aspirin 81 mg chewable tablet 2016-06 12:20: 26 Yes 81mg Take 81 mg by mouth daily. [facility] lisinopril- hydrochloro thiazide 20-25 mg per tablet 2016-06 12:20: 26 Yes 1{tbl} Take 1 tablet by mouth daily. [facility] Levothyroxi ne 125 mcg capsule 2016-06 12:20: 26 Yes 125ug Take 125 mcg by mouth daily. [facility] omeprazole 40 mg capsule 2016-06 12:20: 26 Yes 40mg Take 40 mg by mouth daily. [facility] atorvastati n 20 mg tablet 2016-06 12:20: 26 Yes 20mg Take 20 mg by mouth at bedtime. [facility] prasugrel 10 mg tablet 2016-06 12:20: 26 Yes 10mg Take 10 mg by mouth daily. [facility] Levothyroxi ne 50 mcg capsule 2016-06 12:20: 26 Yes 2.5ug Take 2.5 mcg by mouth 3 (three) times daily. [facility] metFORMIN 1,000 mg tablet 2016-06 12:20: 26 Yes 1000mg Take 1,000 mg by mouth 2 (two) times daily with meals. [facility] glipiZIDE 5 mg tablet 2016-06 12:20: 26 Yes 5mg Take 5 mg by mouth 2 (two) times daily before breakfast and dinner. [facility] HYDROcodone -acetaminop hen (NORCO) 10-325 mg tablet 2016-06 12:20: 26 Yes 1{tbl} Take 1 tablet by mouth every 8 (eight) hours as needed for Pain (scale 4-6). [facility] metaxalone 800 mg tablet 2016-06 12:20: 26 Yes 800mg Take 800 mg by mouth 3 (three) times daily. [facility] aspirin 81 mg chewable tablet 2016-06 12:20: 26 Yes 81mg Take 81 mg by mouth daily. [facility] Vital Signs Vital Name Observation Time Observation Value Comments Santana isistip Systolic blood pressure 2022-12-05 03:19:37 167 mm[Hg] [facility] Diastolic blood pressure 2022-12-05 03:19:37 83 mm[Hg] [facility] Heart rate 2022-12-05 03:19:37 75 /min [facility] Respiratory rate 2022-12-05 03:19:37 18 /min [facility] Oxygen saturation in Arterial blood by Pulse oximetry 2022-12-05 03:19:37 96 /min [facility] Body temperature 2022-12-05 02:09:00 37.28 Eelanor [facility] Body height 2022-12-05 02:09:00 160 cm [facility] Body weight 2022-12-05 02:09:00 117.482 kg [facility] BMI 2022-12-05 02:09:00 45.88 kg/m2 [facility] Systolic blood pressure 2022-11-23 20:23:00 163 mm[Hg] [facility] Diastolic blood pressure 2022-11-23 20:23:00 88 mm[Hg] [facility] Heart rate 2022-11-23 20:20:00 84 /min [facility] Body temperature 2022-11-23 20:20:00 36.89 Eleanor [facility] Respiratory rate 2022-11-23 20:20:00 18 /min [facility] Body height 2022-11-23 20:20:00 160 cm [facility] Body weight 2022-11-23 20:20:00 120.657 kg [facility] BMI 2022-11-23 20:20:00 47.12 kg/m2 [facility] Oxygen saturation in Arterial blood by Pulse oximetry 2022-11-23 20:20:00 96 /min [facility] Procedures Procedure Date / Time Performed Performing Clinicia n Source ASSIGNMENT OF BENEFITS 2022-12-05 03:04:08 Docto r Unassigned, [place] [facility] NOTICE OF PRIVACY PRACTICES 2022-12-05 01:58:52 Doctor Unassigned, [place] [facility] CONSENT/REFUSAL FOR DIAGNOSIS AND TREATMENT 2022-12-05 01:57:19 Doctor Unassigned, [place] [facility] Encounters Start Date/Time End Date/Time Encounter Type Admission Type Attending Clinicians Care Facility Care Department Encounter ID Source 2022-12-04 21:11:00 2022-12-04 22:22:00 Emergency X MEL CAMPOS [facility] [id number] [facility] 2022-12-04 21:11:00 2022-12-04 22:22:00 Emergency Mel Campos [facility] [id number] [facility] 2022-11-23 15:20:00 2022-11-23 15:46:14 Outpatient R ANTON VELIZ [facility] [id number] [facility] 2022-11-23 15:20:00 2022-11-23 15:46:14 Urgent Care Anton Veliz Unknown, Attending [facility] [id number] [facility]
--- NOTE | 2023-07-05 20:40 | RAD REPORT ---
EXAM DESCRIPTION: RAD - Chest Single View - 07/05/2023 8:33 pm CLINICAL HISTORY: CHEST PAIN Chest pain. COMPARISON: Chest Single View dated 11/25/2022; Chest Single View dated 01/06/2016; CHEST SINGLE VIEW d ated 08/14/2013 FINDINGS: Portable technique limits examination quality. The lungs are grossly clear. The heart is upper limit of normal in size. No displaced fractures. IMPRESSION: No acute intrathoracic process suspected.
[2023-07-05 20:48] LABS: Absolute Lymphocytes (CBC) 1.6 K/uL (0.7-4.9); Hematocrit 33.7 % (36.0-45.0); Lymphocytes % 30.6 % (15.3-44.8); MCV 86.4 fL (80-100); MPV 8.2 fL (7.6-11.3); Platelets 244 thou/uL (152-406)
[2023-07-05 21:06] LABS: Potassium 3.5 mEq/L (3.5-5.1); Troponin High Sensitivity 6.9 pg/mL (<58.9)
--- NOTE | 2023-07-05 22:26 | RAD REPORT ---
EXAM DESCRIPTION: CT - Chest For Pe Angio - 07/05/2023 10:14 pm CLINICAL HISTORY: Chest pain. CHEST PAIN COMPARISON: THORAX WO CONTRAST dated 08/15/2013 TECHNIQUE: CT angiogram of the pulmonary arteries was performed with MIP. All CT scans are performed using dose optimization technique as appropriate and may include automated exposure control or mA/KV adjustment according to patient size. FINDINGS: No evidence of pulmonary thromboembolism. No acute aortic finding demonstrated. The lungs are clear. No significant pericardial or pleural fluid. No concerning bony finding. Cholecystectomy clips. IMPRESSION: No evidence of pulmonary thromboembolism. No acute lung findings.
--- NOTE | 2023-07-05 22:36 | ER ---
Nurse's Notes [facility] Name: Glenda Smith Age: 68 yrs Sex: Female : 1955 Arrival Date: 07/05/2023 Time: 19:44 Bed 8 Private MD: Diagnosis: SARS-associated coronavirus as the cause of diseases classified elsewhere Presentation: 07/05 20:01 Chief complaint: Patient states: Pain in neck that radiates to right chest. Pt reports cm10 that sitting forwards makes the pain worse. PT reports that she was exposed to COVID and is having chills. Coronavirus screen: Vaccine status: Patient reports receiving the 2nd dose of the covid vaccine. Client denies travel out of the [place] in the last 14 days. Ebola Screen: Patient denies travel to an Ebola-affected area in the 21 days before illness onset. No symptoms or risks identified at this time. Initial Sepsis Screen: Does the patient meet any 2 criteria? No. Patient's initial sepsis screen is negative. Does the patient have a suspected source of infection? No. Patient's initial sepsis screen is negative. Risk Assessment: Do you want to hurt yourself or someone else? Patient reports no desire to harm self or others. Onset of symptoms was July 05, 2023. 20:01 Method Of Arrival: Wheelchair cm10 20:01 Acuity: PEPE 3 cm10 Historical: - Allergies: 20:03 No Known Allergies; cm10 - PMHx: 20:03 Diabetes - NIDDM; Hypertension; Hypothyroidism; cm10 - Immunization history:: Adult Immunizations up to date. - Social history:: Smoking status: Patient denies any tobacco usage or history of. - Family history:: not pertinent. - Hospitalizations: : No recent hospitalization is reported. Screenin:[facility] ED Fall Risk Assessment (Adult) History of falling in the last 3 months, km8 including since admission No falls in past 3 months (0 pts) Confusion or Disorientation No (0 pts) Intoxicated or Sedated No (0 pts) Impaired Gait No (0 pts) Mobility Assist Device Used No (0 pt) Altered Elimination No (0 pt) Score/Fall Risk Level 0 - 2 = Low Risk Oriented to surroundings, Maintained a safe environment, Educated pt \T\ family on fall prevention, incl call for assistance when getting out of bed, Assessed \T\ reinforced patient's understanding of fall precautions. Abuse screen: Denies threats or abuse. Denies injuries from another. Nutritional screening: No deficits noted. Tuberculosis screening: No symptoms or risk factors identified. Assessment: 20:10 General: Appears in no apparent distress. comfortable, Behavior is calm, cooperative, km8 appropriate for age. Pain: Complains of pain in right subscapular area Pain radiates to anterior aspect of right upper chest Pain currently is 10 out of 10 on a pain scale. Quality of pain is described as sharp, Is intermittent. Neuro: Level of Consciousness is awake, alert, obeys commands, Oriented to person, place, time, situation. Cardiovascular: Denies chest pain, shortness of breath, Capillary refill < 3 seconds Patient's skin is warm and dry. Respiratory: Airway is patent Respiratory effort is even, unlabored, Respiratory pattern is regular, symmetrical. GI: No signs and/or symptoms were reported involving the gastrointestinal system. : No signs and/or symptoms were reported regarding the genitourinary system. EENT: No signs and/or symptoms were reported regarding the EENT system. Derm: No signs and/or symptoms reported regarding the dermatologic system. Skin is intact, is healthy with good turgor, Skin is dry, Skin is pink, warm \T\ dry. normal, Skin temperature is warm. Musculoskeletal: No signs and/or symptoms reported regarding the musculoskeletal system. Circulation, motion, and sensation intact. Range of motion: intact in all extremities. 21:01 Reassessment: Patient appears in no apparent distress at this time. No changes from tm6 previously documented assessment. Patient and/or family updated on plan of care and expected duration. Pain level reassessed. Patient is alert, oriented x 3, equal unlabored respirations, skin warm/dry/pink. 21:54 Reassessment: Patient appears in no apparent distress at this time. No changes from tm6 previously documented assessment. Patient and/or family updated on plan of care and expected duration. Pain level reassessed. Patient is alert, oriented x 3, equal unlabored respirations, skin warm/dry/pink. 22:53 Reassessment: Patient appears in no apparent distress at this time. No changes from tm6 previously documented assessment. Vital Signs: 20:01 BP 183 / 106; Pulse 88; Resp 16; Temp 99.9; Pulse Ox 99% ; Weight 117.93 kg; Height 5 cm10 ft. 3 in. ; Pain 10/10; 20:17 BP 154 / 93; Pulse 76; Resp 18; Pulse Ox 99% on R/A; km8 21:01 BP 143 / 56; Pulse 70; Pulse Ox 99% on R/A; tm6 21:58 Pulse 70; Pulse Ox 98% on R/A; tm6 22:53 BP 140 / 53; Pulse 69; Pulse Ox 98% on R/A; Pain 0/10; tm6 20:01 Body Mass Index 46.06 (117.93 kg, 160.02 cm) cm10 20:01 Pain Scale: Adult cm10 22:53 Pain Scale: Adult tm6 Cindy Coma Score: 20:10 Eye Response: spontaneous(4). Motor Response: obeys commands(6). Verbal Response: km8 oriented(5). Total: 15. ED Course: 19:53 Patient arrived in ED. kj1 19:53 Cresencio Rosario MD is Attending Physician. rn 20:03 Triage completed. cm10 20:03 Arm band placed on Patient placed in an exam room, on a stretcher. cm10 20:09 Jody Zabala, ELAINE is Primary Nurse. km8 20:10 Patient has correct armband on for positive identification. Bed in low position. Call km8 light in reach. Side rails up X2. Client placed on continuous cardiac and pulse oximetry monitoring. NIBP monitoring applied. 20:10 No provider procedures requiring assistance completed. Patient maintains SpO2 km8 saturation greater than 95% on room air. 20:33 Inserted saline lock: 22 gauge in right forearm, using aseptic technique. tm6 20:35 XRAY Chest (1 view) In Process Unspecified. EDMS 22:16 CT Chest For PE Angio In Process Unspecified. EDMS 22:54 Provided Education on: managing covid symptoms at home. tm6 22:54 IV discontinued, intact, bleeding controlled, No redness/swelling at site. Pressure tm6 dressing applied. Administered Medications: 20:09 Drug: Ibuprofen PO 600 mg PO once Route: PO; km8 21:48 Follow up: Response: No adverse reaction km8 21:48 Drug: morphine IVP or IV 2 mg IVP once over 4 mins Route: IVP; Infused Over: 4 mins; km8 Site: right forearm; 22:29 Follow up: Response: No adverse reaction; Pain is decreased; Anxiety decreased km8 Medication: 20:10 VIS not applicable for this client. km8 Outcome: 22:35 Discharge ordered by . rn 22:54 Discharged to home ambulatory, with family, tm6 22:54 Condition: stable 22:54 Discharge instructions given to patient, family, Instructed on discharge instructions, follow up and referral plans. Demonstrated understanding of instructions, follow-up care, 22:54 Patient left the ED. tm6 Signatures: Dispatcher [employer] EDMS Cresencio Rosario MD MD rn Jackson, Kandis kj1 Tiffanie Becker RN RN cm10 Jody Zabala RN RN km8 Keaton Gómez RN RN tm6
--- NOTE | 2023-07-05 22:36 | EDPHYS ---
Physician Documentation [facility] Name: Glenda Smith Age: 68 yrs Sex: Female : 1955 Arrival Date: 07/05/2023 Time: 19:44 Bed 8 Private MD: ED Physician Cresencio Rosario HPI: 07/05 20:24 This 68 yrs old Black Female presents to ER via Wheelchair with complaints of PAIN IN rn BACK RADIATING TO FRONT RIGHT SIDE. 20:24 The patient or guardian reports chest pain that is located primarily in the anterior rn chest wall, right. Onset: today. The pain does not radiate. The chest pain is described as aching, sharp. Duration: The patient or guardian reports multiple episodes. Modifying factors: The symptoms are alleviated by nothing. the symptoms are aggravated by cough. Severity of pain: At its worst the pain was mild in the emergency department the pain has improved. The patient has not experienced similar symptoms in the past. Patient reports started feeling sick today with low-grade fever, cough, weakness, runny nose. Patient reports started having right-sided shoulder and chest pain that is intermittent, sharp and achy at the same time. Worse with cough and leaning forward. No history of DVT or PE. Patient reports daughter tested positive for COVID and she is concerned she has COVID. Patient has had COVID before and did okay without hospitalization.. Historical: - Allergies: 20:03 No Known Allergies; cm10 - PMHx: 20:03 Diabetes - NIDDM; Hypertension; Hypothyroidism; cm10 - Immunization history:: Adult Immunizations up to date. - Social history:: Smoking status: Patient denies any tobacco usage or history of. - Family history:: not pertinent. - Hospitalizations: : No recent hospitalization is reported. ROS: 20:24 Constitutional: Positive for fever and chills ENT: Positive for congestion Neck: rn Negative for injury, pain, and swelling, Cardiovascular: Negative for palpitations, and edema, Respiratory: Negative for shortness of breath, positive for cough Abdomen/GI: Negative for abdominal pain, nausea, vomiting, diarrhea, and constipation, Back: Negative for injury and pain, : Negative for injury, bleeding, discharge, and swelling, MS/Extremity: Negative for injury and deformity, Skin: Negative for injury, rash, and discoloration, Neuro: Positive for generalized weakness and malaise Exam: 20:24 Constitutional: This is a well developed, well nourished patient who is awake, alert, rn and in no acute distress. Head/Face: Normocephalic, atraumatic. ENT: No stridor Neck: No midline cervical tenderness. No masses. No crepitus. No swelling or asymmetry Chest/axilla: Nontender without crepitus Cardiovascular: Regular rate and rhythm. No pulse deficits. Respiratory: No increased work of breathing, no retractions or nasal flaring. Abdomen/GI: Soft, non-tender MS/ Extremity: Pulses equal, no cyanosis. Neuro: Awake and alert, GCS 15, oriented to person, place, time, and situation. Cranial nerves II-XII grossly intact. Motor strength 5/5 in all extremities. Sensory grossly intact. 20:34 ECG was reviewed by the Attending Physician. rn Vital Signs: 20:01 BP 183 / 106; Pulse 88; Resp 16; Temp 99.9; Pulse Ox 99% ; Weight 117.93 kg; Height 5 cm10 ft. 3 in. ; Pain 10/10; 20:17 BP 154 / 93; Pulse 76; Resp 18; Pulse Ox 99% on R/A; km8 21:01 BP 143 / 56; Pulse 70; Pulse Ox 99% on R/A; tm6 21:58 Pulse 70; Pulse Ox 98% on R/A; tm6 22:53 BP 140 / 53; Pulse 69; Pulse Ox 98% on R/A; Pain 0/10; tm6 20:01 Body Mass Index 46.06 (117.93 kg, 160.02 cm) cm10 20:01 Pain Scale: Adult cm10 22:53 Pain Scale: Adult tm6 Cindy Coma Score: 20:10 Eye Response: spontaneous(4). Motor Response: obeys commands(6). Verbal Response: km8 oriented(5). Total: 15. MDM: 19:53 Patient medically screened. rn 21:59 ED course: Pt initially refused CT chest, delaying care. Will try to get images to rule rn out PE.. 22:34 Differential diagnosis: acute pericarditis, anxiety, costochondritis, gastroesophageal rn reflux disease (GERD), pleurisy, pneumonia, pneumothorax, pulmonary embolus, stable angina, thoracic aortic disection. Data reviewed: vital signs, nurses notes, lab test result(s), EKG, radiologic studies, CT scan, plain films, and as a result, I will admit patient. Consideration of Admission/Observation Patient was admitted/placed on observation. Escalation of care including admission/observation considered. Counseling: I had a detailed discussion with the patient and/or guardian regarding the historical points, exam findings, and any diagnostic results supporting the discharge/admit diagnosis, lab results, radiology results, the need for outpatient follow up, to return to the emergency department if symptoms worsen or persist or if there are any questions or concerns that arise at home. ED course: Patient COVID-positive. Otherwise no acute findings. CT PE protocol negative. No evidence of pericarditis on ECG or pericardial effusion. Will DC home with return precautions and [id number] anti-inflammatory medication.. 07/05 20:03 Order name: Basic Metabolic Panel; Complete Time: 21:25 rn 07/05 20:03 Order name: CBC with Diff; Complete Time: : rn 07/05 20:03 Order name: NT PRO-BNP; Complete Time: : rn 07/05 20:03 Order name: Troponin HS; Complete Time: : rn 07/05 20:03 Order name: SARS-COV-2 RT PCR; Complete Time: : rn 07/05 20:03 Order name: Flu; Complete Time: : rn 07/05 20:03 Order name: XRAY Chest (1 view); Complete Time: 20:42 rn 07/05 20:03 Order name: CT Chest For PE Angio; Complete Time: 22:33 rn 07/05 20:03 Order name: EKG; Complete Time: 20:04 rn 07/05 20:03 Order name: Cardiac monitoring; Complete Time: : rn 07/05 20:03 Order name: EKG - Nurse/Tech; Complete Time: 20:33 rn 07/05 20:03 Order name: IV Saline Lock; Complete Time: : rn 07/05 20:03 Order name: Labs collected and sent; Complete Time: : rn 07/05 20:03 Order name: O2 Per Protocol; Complete Time: 20: rn 07/05 20:03 Order name: O2 Sat Monitoring; Complete Time: 20:33 rn EC:34 Rate is 74 beats/min. Rhythm is regular. QRS is positive in lead I and negative in lead rn aVF. MI interval is normal. QRS interval is prolonged at 160 msec. QT interval is normal. No Q waves. T waves are Normal. No ST changes noted. Clinical impression: NSR w/ Non-specific ST/T Changes. Interpreted by me. Reviewed by me. Administered Medications: 20:09 Drug: Ibuprofen PO 600 mg PO once Route: PO; km8 21:48 Follow up: Response: No adverse reaction [facility] 21:48 Drug: morphine IVP or IV 2 mg IVP once over 4 mins Route: IVP; Infused Over: 4 mins; km8 Site: right forearm; 22:29 Follow up: Response: No adverse reaction; Pain is decreased; Anxiety decreased km8 Disposition Summary: 07/05/23 22:35 Discharge Ordered Notes: Location: Home rn Problem: new rn Symptoms: have improved rn Condition: Stable rn Diagnosis - SARS-associated coronavirus as the cause of diseases classified elsewhere rn Followup: rn - With: Private Physician - When: As needed - Reason: Recheck today's complaints, Re-evaluation by your physician Discharge Instructions: - Discharge Summary Sheet rn - COVID-19 rn - 10 Things You Can Do to Manage Your COVID-19 Symptoms at Home - [facility] (12/15/2020) rn - Viral Illness, Adult rn Forms: - Medication Reconciliation Form rn - Thank You Letter rn - Antibiotic rn nicu - Prescription Opioid Use rn - Patient Portal Instructions rn - Leadership Thank You Letter rn Signatures: Dispatcher [employer] Cresencio Michelle MD MD rn Martinez, Clarissa RN RN cm10 Jody Zabala RN RN km8
[2023-07-06 01:21] VITALS: BP 140/53; TEMP 99.9; O2SAT 98
--- NOTE | 2023-07-08 12:58 | EKG ---
Test Date: 2023-07-05 Test Time: 20:15:15 Admissions Officer: BF MEASUREMENT RESULTS: Intervals: Rate: 74 NM: 142 QRSD: 160 QT: 432 QTc: 479 [place]: P: 55 NM: 142 QRS: -64 T: 6 INTERPRETIVE STATEMENTS: Normal sinus rhythm Right bundle branch block Left anterior fascicular block Bifascicular block Minimal voltage criteria for LVH, may be normal variant Possible Lateral infarct, age undetermined Cannot rule out Inferior infarct (masked by fascicular block?), age undetermined Abnormal ECG Compared to ECG 04/02/2023 10:35:54 Left anterior fascicular block now present Bifascicular block now present Left ventricular hypertrophy now present Myocardial infarct finding now present Electronically Signed On 07-08-23 12:53:54 [employer] by Tyrell Jones
== END ==
LOC: ER 19:44
DX: U07.1 COVID-19 (principal); E11.9 Type 2 diabetes mellitus without complications; I10 Essential (primary) hypertension
CPT/HCPCS: 85025; 80048; 36415; 84484; 83880; 87635; 87804 ×2; 71275; 71045; Q9967; J2270; 93005